=== PATIENT | male | born 1995 | race Caucasian/White ===

== ENCOUNTER 2018-11-05 12:06 | Observation (INO) | payer OTHER ==
--- NOTE | 2018-11-05 12:25 | ER Document Report ---
ED Medical Screen (RME) - General Chief Complaint: Fall Injury Stated Complaint: RIGHT FOOT INJURY Time Seen by Provider: 11/05/18 12:20 Mode of Arrival: Wheelchair Information source: Patient Notes: 23-year-old male presents emergency department after falling 16 feet onto the ground landing on his feet. Complaints of neck pain right ankle right foot pain. Past medical history of fracture to the right ankle. I have greeted and performed a rapid initial assessment of this patient. A comprehensive ED assessment and evaluation of the patient, analysis of test results and completion of the medical decision making process will be conducted by additional ED providers. Dictation of this chart was performed using voice recognition software; therefore, there may be some unintended grammatical errors. Physical Exam - Vital signs Vitals: Temp Pulse Resp BP Pulse Ox 97.3 F 63 18 110/66 99 11/05/18 12:12 11/05/18 12:12 11/05/18 12:12 11/05/18 12:12 11/05/18 12:12 Course - Vital Signs Vital signs: Temp Pulse Resp BP Pulse Ox 97.3 F 63 18 110/66 99 11/05/18 12:12 11/05/18 12:12 11/05/18 12:12 11/05/18 12:12 11/05/18 12:12
--- NOTE | 2018-11-05 13:10 | RADIOLOGY REPORT (SQ) ---
EXAM DESCRIPTION: CT CERVICAL SPINE WITHOUT COMPLETED DATE/TIME: 11/05/2018 12:58 pm REASON FOR STUDY: fall from 16 feet onto feet COMPARISON: None. TECHNIQUE: Axial images acquired through the cervical spine without intravenous contrast. Images re viewed with lung, soft tissue and bone windows. Reconstructed coronal and sagittal MPR images review ed. Images stored on PACS. All CT scanners at this facility use dose modulation, iterative reconstruction, and/or weight based d osing when appropriate to reduce radiation dose to as low as reasonably achievable (ALARA). [facility]: Dose Right [facility]: CareDose [facility]: Dose Right [facility]: Teradose 4D [facility]: Smart C$ [employer]Money RADIATION DOSE: CT Rad equipment meets quality standard of care and radiation dose reduction techniq ues were employed. CTDIvol: 13.5 mGy. DLP: 274 mGy-cm. mGy. LIMITATIONS: None. FINDINGS: ALIGNMENT: Anatomic. MINERALIZATION: Normal. VERTEBRAL BODIES: No fractures or dislocation. DISCS: No significant disc disease. FACETS, LATERAL MASSES, POSTERIOR ELEMENTS: No fractures. No dislocation. No acute findings. HARDWARE: None in the spine. VISUALIZED RIBS: No fractures. LUNG APICES AND SOFT TISSUES: No significant or acute findings. OTHER: No other significant finding. IMPRESSION: NO ACUTE OR SIGNIFICANT FINDINGS IN THE CERVICAL SPINE. TECHNICAL DOCUMENTATION: JOB ID: [id number] Quality ID # [id number]: Final reports with documentation of one or more dose reduction techniques (e.g., Au tomated exposure control, adjustment of the mA and/or kV according to patient size, use of iterative reconstruction technique) 2010 [employer]- All Rights Reserved Reading location - IP/workstation name: [email or web address]
--- NOTE | 2018-11-05 13:12 | RADIOLOGY REPORT (SQ) ---
EXAM DESCRIPTION: CT LUMBAR SPINE WITHOUT COMPLETED DATE/TIME: 11/05/2018 12:58 pm REASON FOR STUDY: fall from 16 feet onto feet COMPARISON: None. TECHNIQUE: Axial images acquired through the lumbar spine without intravenous contrast. Images revi ewed with lung, soft tissue and bone windows. Reconstructed coronal and sagittal MPR images reviewed . All images stored on PACS. All CT scanners at this facility use dose modulation, iterative reconstruction, and/or weight based d osing when appropriate to reduce radiation dose to as low as reasonably achievable (ALARA). [facility]: Dose Right [facility]: CareDose [facility]: Dose Right [facility]: Teradose 4D [facility]: [employer] RADIATION DOSE: mGy. LIMITATIONS: None. FINDINGS: SEGMENTATION: Normal. No transitional anatomy. ALIGNMENT: Normal. VERTEBRAL BODIES: No fractures. No dislocation. No acute findings. DISCS: No significant protrusions. Study limited by lack of intrathecal contrast. PEDICLES, TRANSVERSE PROCESSES: No fractures. No dislocation. No acute findings. FACETS, POSTERIOR ELEMENTS: No fractures. No dislocation. No spinal stenosis. HARDWARE: None in the spine. VISUALIZED RIBS: No fractures. SOFT TISSUES: No significant or acute finding in adjacent soft tissues. OTHER: No other significant finding. IMPRESSION: NORMAL CT OF THE LUMBAR SPINE. TECHNICAL DOCUMENTATION: JOB ID: [id number] Quality ID # [id number]: Final reports with documentation of one or more dose reduction techniques (e.g., Au tomated exposure control, adjustment of the mA and/or kV according to patient size, use of iterative reconstruction technique) 2010 [email or web address]- All Rights Reserved Reading location - IP/workstation name: [email or web address]
--- NOTE | 2018-11-05 13:14 | RADIOLOGY REPORT (SQ) ---
EXAM DESCRIPTION: ANKLE RIGHT COMPLETE COMPLETED DATE/TIME: 11/05/2018 12:55 pm REASON FOR STUDY: fall from 16 feet onto feet COMPARISON: None. NUMBER OF VIEWS: Three views. TECHNIQUE: AP, lateral, and oblique radiographic images acquired of the right ankle. LIMITATIONS: None. FINDINGS: MINERALIZATION: Normal. BONES: No acute fracture or dislocation. No worrisome bone lesions. JOINTS: No effusions. SOFT TISSUES: No soft tissue swelling. No foreign body. OTHER: No other significant finding. IMPRESSION: NEGATIVE STUDY OF THE RIGHT ANKLE. NO RADIOGRAPHIC EVIDENCE OF ACUTE INJURY IN THE ANKLE . FINDINGS IN THE FOOT (CALCANEUS) REPORTED SEPARATELY. TECHNICAL DOCUMENTATION: JOB ID: [id number] [employer]- All Rights Reserved Reading location - IP/workstation name: [email or web address]
--- NOTE | 2018-11-05 13:16 | RADIOLOGY REPORT (SQ) ---
EXAM DESCRIPTION: FOOT RIGHT COMPLETE COMPLETED DATE/TIME: 11/05/2018 12:55 pm REASON FOR STUDY: fall from 16feet onto feet COMPARISON: None. NUMBER OF VIEWS: Three views. TECHNIQUE: AP, lateral and oblique radiographic images acquired of the right foot. LIMITATIONS: None. FINDINGS: MINERALIZATION: Normal. BONES: Acute comminuted and intra-articular calcaneal fracture. There is no other fracture. The tar sometatarsal alignment is preserved. SOFT TISSUES: Swelling adjacent to the fracture. OTHER: No other finding. IMPRESSION: Acute comminuted and intra-articular calcaneal fracture. TECHNICAL DOCUMENTATION: JOB ID: [id number] [employer]- All Rights Reserved Reading location - IP/workstation name: [email or web address]
[2018-11-05] MEDS ORDERED: MORPHINE SULFATE 10 MG/ML INJ IV ONE (13:56)
[2018-11-05] MEDS ORDERED: ONDANSETRON HCL INJ/PF 4 MG/2 ML SDV IV ONE (13:56)
[2018-11-05] MEDS ORDERED: NORMAL SALINE 1000 ML 1,000 ML IV ONE (13:56)
[2018-11-05] MEDS ORDERED: CEFTRIAXONE 2 GM/D5W RTU 2 GM/50 ML RTUPB IV ONE (13:57)
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
[2018-11-05 15:08] LABS: ABSOLUTE LYMPHOCYTES (AUTO) 0.7 10^3/uL (0.5-4.7); ABSOLUTE MONOCYTES (AUTO) 0.6 10^3/uL (0.1-1.4); ABSOLUTE NEUT (AUTO) 10.9 10^3/uL (1.7-8.2); BASOPHILS % (AUTO) 0.1 % (0-2); EOSINOPHILS % (AUTO) 0.1 % (0-6); HEMATOCRIT 39.8 % (37.9-51.0); HEMOGLOBIN 13.9 g/dL (13.5-17.0); LYMPHOCYTES % (AUTO) 5.4 % (13-45); MEAN CORPUSCULAR HEMOGLOBIN 29.9 pg (27.0-33.4); MEAN CORPUSCULAR VOLUME 85 fl (80-97); MONOCYTES % (AUTO) 4.8 % (3-13); PLATELET COUNT 200 10^3/uL (150-450); RED BLOOD COUNT 4.67 10^6/uL (4.35-5.55); RED CELL DISTRIBUTION WIDTH 12.8 % (11.5-14.0); SEGMENTED NEUTROPHILS % (AUTO) 89.6 % (42-78); TOTAL CELLS COUNTED % (AUTO) 100 %; WHITE BLOOD COUNT 12.2 10^3/uL (4.0-10.5)
[2018-11-05 15:30] LABS: ALBUMIN 4.9 g/dL (3.5-5.0); ALKALINE PHOSPHATASE 60 U/L (38-126); ANION GAP 11 (5-19); ASPARTATE AMINO TRANSFERASE 34 U/L (17-59); BILIRUBIN,DIRECT 0.1 mg/dL (0.0-0.4); BILIRUBIN,TOTAL 0.7 mg/dL (0.2-1.3); BLOOD UREA NITROGEN 15 mg/dL (7-20); CALCIUM 9.9 mg/dL (8.4-10.2); CARBON DIOXIDE 27 mmol/L (22-30); CHLORIDE 100 mmol/L (98-107); GLUCOSE 85 mg/dL (75-110); POTASSIUM 3.9 mmol/L (3.6-5.0); TOTAL PROTEIN 7.6 g/dL (6.3-8.2)
[2018-11-05] MEDS: CEFTRIAXONE 2 GM/D5W RTU 2 GM/50 ML RTUPB IV SCH (17:32)
[2018-11-05] MEDS ORDERED: OXYCODONE HCL IR 5 MG TABLET PO PRN (17:55)
[2018-11-05] MEDS: MORPHINE SULFATE 10 MG/ML INJ IV PRN ×2 (18:16→20:16)
[2018-11-05 18:23] LABS: ABSOLUTE LYMPHOCYTES (AUTO) 1.4 10^3/uL (0.5-4.7); ABSOLUTE MONOCYTES (AUTO) 0.6 10^3/uL (0.1-1.4); ABSOLUTE NEUT (AUTO) 8.3 10^3/uL (1.7-8.2); BASOPHILS % (AUTO) 0.2 % (0-2); EOSINOPHILS % (AUTO) 0.1 % (0-6); HEMATOCRIT 40.4 % (37.9-51.0); HEMOGLOBIN 14.1 g/dL (13.5-17.0); LYMPHOCYTES % (AUTO) 13.2 % (13-45); MEAN CORPUSCULAR VOLUME 86 fl (80-97); MONOCYTES % (AUTO) 6.2 % (3-13); PLATELET COUNT 204 10^3/uL (150-450); RED BLOOD COUNT 4.71 10^6/uL (4.35-5.55); SEGMENTED NEUTROPHILS % (AUTO) 80.3 % (42-78); TOTAL CELLS COUNTED % (AUTO) 100 %; WHITE BLOOD COUNT 10.3 10^3/uL (4.0-10.5)
[2018-11-05 18:35] LABS: INTERNATIONAL RATION (INR) 1.18; PROTHROMBIN TIME 15.1 SEC (11.4-15.4)
[2018-11-05 18:36] LABS: PARTIAL THROMBOPLASTIN TIME 27.7 SEC (23.5-35.8)
[2018-11-05 18:42] LABS: ANION GAP 10 (5-19); BLOOD UREA NITROGEN 12 mg/dL (7-20); CALCIUM 9.4 mg/dL (8.4-10.2); CARBON DIOXIDE 28 mmol/L (22-30); CHLORIDE 102 mmol/L (98-107); GLUCOSE 133 mg/dL (75-110)
[2018-11-06] MEDS: MORPHINE SULFATE 10 MG/ML INJ IV PRN ×5 (00:10→11:39)
[2018-11-06] MEDS: RINGERS SOLUTION,LACTATED 1,000 ML IV PRN ×3 (00:14→17:19)
[2018-11-06] MEDS ORDERED: CEFAZOLIN SODIUM 2 GM in DEXTROSE 5%-WATER 100 ML IV PRN (05:00)
[2018-11-06] MEDS ORDERED: KETOROLAC TROMETHAMINE 60 MG/2 ML SDV ONE (09:15)
[2018-11-06] MEDS ORDERED: LIDOCAINE 2% INJ-PF (20 MG/ML) 2 ML AMPUL ONE (09:15)
[2018-11-06] MEDS ORDERED: SUCCINYLCHOLINE CHLORIDE INJ 200 MG/10 ML VIAL ONE (09:15)
[2018-11-06] MEDS ORDERED: ONDANSETRON HCL INJ/PF 4 MG/2 ML SDV ONE (09:15)
[2018-11-06] MEDS ORDERED: DEXAMETHASONE SOD PHOSPHATE INJ 4 MG/1 ML VIAL ONE (09:15)
--- NOTE | 2018-11-06 11:45 | PDOC H&P ---
History of Present Illness Admission Date/PCP: 11/05/18 15:01 History of Present Illness: JARRED LOWRY is a 23 year old male Patient is a 23-year-old white male who fell 16 feet onto outstretched lower extremity sustaining a right foot injury. He is evaluated in the emergency room where an grade 1 open right calcaneal fracture is diagnosed. Patient is bandaged and admitted to orthopedic service for fracture management. Past Medical History Medical History: None Past Surgical History Past Surgical History: Reports: None Social History Information Source: Patient, [facility] Records Lives with: Family Smoking Status: Unknown if Ever Smoked Frequency of Alcohol Use: Occasional Hx Recreational Drug Use: No Hx Prescription Drug Abuse: No Family History Family History: Reviewed & Not Pertinent Parental Family History Reviewed: No Children Family History Reviewed: No Sibling(s) Family History Reviewed.: No Medication/Allergy Home Medications: No Home Medications 11/05/18 Allergies/Adverse Reactions: No Known Allergies Allergy (Verified 11/05/18 14:21) Review of Systems All systems: as per [facility] Physical Exam Vital Signs: Temp Pulse Resp BP Pulse Ox 36.6 C 61 12 120/72 98 11/06/18 07:47 11/06/18 07:47 11/06/18 07:47 11/06/18 07:47 11/06/18 07:47 Intake & Output 11/05/18 11/06/18 11/07/18 06:59 06:59 06:59 Intake Total 2100 Balance 2100 Weight 67.3 kg Physical Exam: Patient is a tall thin white male lying on emergency room [facility]. The patient is alert, oriented,, and appropriate. The patient is minor distress. General appearance: PRESENT: no acute distress, mild distress Head exam: PRESENT: normocephalic Respiratory exam: PRESENT: unlabored Cardiovascular exam: PRESENT: RRR Pulses: PRESENT: +1 pedal pulses bilateral Vascular exam: PRESENT: normal capillary refill GI/Abdominal exam: PRESENT: soft Rectal exam: PRESENT: deferred Extremities exam: PRESENT: other - Foot is wrapped in Kerlix. Toes are exposed. There is brisk capillary refill. There is active flexion extension of the great toe. Sensory examination is intact to light touch. There is bleeding to the plantar surface of the foot. On the plantar surface the foot is a small punctate wound presumably from an in to out mechanism. Psychiatric exam: PRESENT: appropriate affect, normal mood. ABSENT: homicidal ideation, suicidal ideation Skin exam: PRESENT: dry, intact, warm. ABSENT: cyanosis, rash Results Laboratory Results: 11/05/18 18:09 11/05/18 18:09 11/05/18 11/05/18 11/05/18 14:38 14:38 18:09 WBC 12.2 H 10.3 RBC 4.67 4.71 Hgb 13.9 14.1 Hct 39.8 40.4 MCV 85 86 MCH 29.9 30.0 MCHC 35.0 35.0 RDW 12.8 13.0 Plt Count 200 204 Seg Neutrophils % 89.6 H 80.3 H Sodium 137.8 Potassium 3.9 Chloride 100 Carbon Dioxide 27 Anion Gap 11 BUN 15 Creatinine 0.95 Est GFR ( Amer) > 60 Glucose 85 Calcium 9.9 Total Bilirubin 0.7 AST 34 Alkaline Phosphatase 60 Total Protein 7.6 Albumin 4.9 11/05/18 18:09 WBC RBC Hgb Hct MCV MCH MCHC RDW Plt Count Seg Neutrophils % Sodium 140.2 Potassium 4.0 Chloride 102 Carbon Dioxide 28 Anion Gap 10 BUN 12 Creatinine 0.87 Est GFR ( Amer) > 60 Glucose 133 H Calcium 9.4 Total Bilirubin AST Alkaline Phosphatase Total Protein Albumin Impressions: Ankle X-Ray 11/05/18 12:22 IMPRESSION: NEGATIVE STUDY OF THE RIGHT ANKLE. NO RADIOGRAPHIC EVIDENCE OF ACUTE INJURY IN THE ANKLE. FINDINGS IN THE FOOT (CALCANEUS) REPORTED SEPARATELY. Cervical Spine CT 11/05/18 12:22 IMPRESSION: NO ACUTE OR SIGNIFICANT FINDINGS IN THE CERVICAL SPINE. Foot X-Ray 11/05/18 12:22 IMPRESSION: Acute comminuted and intra-articular calcaneal fracture. Lumbar Spine CT 11/05/18 12:22 IMPRESSION: NORMAL CT OF THE LUMBAR SPINE. Status: Imported from PACS Assessment & Plan - Diagnosis (1) Fracture, calcaneus, open Qualifiers: Encounter type: initial encounter Calcaneus location: unspecified portion of calcaneus Fracture alignment: displaced Laterality: right Qualified Code(s): S92.001B - Unspecified fracture of right calcaneus, initial encounter for open fracture Is this a current diagnosis for this admission?: Yes Plan: Placement patient is started on intravenous antibiotics and will be taken to the operating room for irrigation debridement and an ORIF of the calcaneus fracture. - Time Time Spent: 50 to 70 Minutes Anticipated discharge: Home with Homehealth Within: within 24 hours
[2018-11-06] MEDS ORDERED: FENTANYL CITRATE INJ/PF 250 MCG/5 ML AMPULE ONE (12:28)
[2018-11-06] MEDS ORDERED: HYDROMORPHONE HCL INJ/PF 2 MG/ML AMPULE ONE (12:28)
[2018-11-06] MEDS ORDERED: PROPOFOL INJ 200 MG/20 ML VIAL IV ONE (12:28)
[2018-11-06] MEDS ORDERED: MIDAZOLAM 2 MG/2 ML INJ ONE (12:28)
[2018-11-06] MEDS ORDERED: BUPIVACAINE HCL 0.5%-EPI 1:200000 INJ/PF 30 ML VIAL ONE (12:52)
[2018-11-06] MEDS ORDERED: MEPERIDINE HCL/PF INJ 25 MG/1 ML DISP.SYRIN IV PRN ×2 (13:55→15:14)
[2018-11-06] MEDS ORDERED: OXYCODONE-ACETAMINOPHEN 5-325 MG TABLET PO PRN ×4 (13:55→15:14)
[2018-11-06] MEDS ORDERED: FENTANYL CITRATE INJ/PF 100 MCG/2 ML AMPUL IV PRN ×6 (13:55→15:14)
[2018-11-06] MEDS ORDERED: MORPHINE SULFATE 10 MG/ML INJ IV PRN ×2 (13:55→15:14)
[2018-11-06] MEDS ORDERED: DIPHENHYDRAMINE HCL 50 MG/ML VIAL IV PRN ×2 (13:55→15:14)
[2018-11-06] MEDS ORDERED: PROMETHAZINE HCL INJ 25 MG/1 ML VIAL IV PRN ×2 (13:55→15:14)
--- NOTE | 2018-11-06 14:20 | Operative Report ---
Operative Report DATE OF SURGERY: 11/06/18 PREOPERATIVE DIAGNOSIS: Grade 1 open right calcaneal fracture OPERATION: Debridement open right calcaneal fracture including skin, subcutaneous tissue, fascia, and bone. ORIF of right calcaneal fracture SURGEON: GALILEA WILSON ANESTHESIA: GA ESTIMATED BLOOD LOSS: When he 5 PROCEDURE: With the patient is sloppy left lateral decubitus position on the operative table the right lower extremities prepped and draped in sterile fashion. The extremity is elevated for exsanguination tourniquet inflated 280 torr. A curvilinear incision was made along the posterior and inferior aspects of the lateral right calcaneus and sharp dissection was carried incision down to the underlying bone. Soft tissue including the periosteum is elevated as a single layer. The fracture is exposed and the soft tissue held retracted by K wires. Next a stab wound was placed through the plantar surface of the calcaneus and a Steinmann pin is placed up into the posterior aspect of the calcaneus. This is used for distraction to help reduce the fracture. With further manipulation including manual reduction the fracture is reduced satisfactorily using fluoroscopic guidance. Subsequently a [place] titanium calcaneal plate is applied to the lateral surface of the calcaneus and secured with screws to maintain the reduction. The wound is then irrigated with bulb lavage. The tourniquet is deflated. Hemostasis obtained with electrocautery. The wound was closed in layers with interrupted Vicryl followed by skin nylon. A sterile compressive dressing and posterior plaster splint were applied and the patient's return to the PACU in satisfactory condition.
[2018-11-06] MEDS ORDERED: TRANEXAMIC ACID INJ/PF 1,000 MG/10 ML SDV ONE (14:34)
--- NOTE | 2018-11-06 14:57 | RADIOLOGY REPORT (SQ) ---
EXAM DESCRIPTION: NO CHG FLUORO; OS CALCIS/HEEL RIGHT COMPLETED DATE/TIME: 11/06/2018 2:45 pm REASON FOR STUDY: ORIF RIGHT CALCANEOUS ASST WITH FLUORO IN OR COMPARISON: None. FLUOROSCOPY TIME: 0.3 minutes 2 Images saved to PACS TECHNIQUE: Intra-operative images acquired during surgical procedure to evaluate progress. NUMBER OF IMAGES: 2 LIMITATIONS: None. FINDINGS: Intraoperative fluoroscopic images obtained to evaluate progress. Please see operative re port for detailed description. IMPRESSION: IMAGE(S) OBTAINED DURING PROCEDURE. COMMENT: Quality ID [id number]: Final reports for procedures using fluoroscopy that document radiation exp osure indices, or exposure time and number of fluorographic images (if radiation exposure indices are not available) Please consult full operative report of the attending physician for description of the procedure. TECHNICAL DOCUMENTATION: JOB ID: [id number] [employer]- All Rights Reserved Reading location - IP/workstation name: [email or web address]
--- NOTE | 2018-11-06 14:57 | RADIOLOGY REPORT (SQ) ---
EXAM DESCRIPTION: NO CHG FLUORO; OS CALCIS/HEEL RIGHT COMPLETED DATE/TIME: 11/06/2018 2:45 pm REASON FOR STUDY: ORIF RIGHT CALCANEOUS ASST WITH FLUORO IN OR COMPARISON: None. FLUOROSCOPY TIME: 0.3 minutes 2 Images saved to PACS TECHNIQUE: Intra-operative images acquired during surgical procedure to evaluate progress. NUMBER OF IMAGES: 2 LIMITATIONS: None. FINDINGS: Intraoperative fluoroscopic images obtained to evaluate progress. Please see operative re port for detailed description. IMPRESSION: IMAGE(S) OBTAINED DURING PROCEDURE. COMMENT: Quality ID [id number]: Final reports for procedures using fluoroscopy that document radiation exp osure indices, or exposure time and number of fluorographic images (if radiation exposure indices are not available) Please consult full operative report of the attending physician for description of the procedure. TECHNICAL DOCUMENTATION: JOB ID: [id number] [employer]- All Rights Reserved Reading location - IP/workstation name: [email or web address]
[2018-11-06] MEDS: CEFTRIAXONE 2 GM/D5W RTU 2 GM/50 ML RTUPB IV SCH (17:18)
[2018-11-07 07:05] LABS: ABSOLUTE LYMPHOCYTES (AUTO) 1.2 10^3/uL (0.5-4.7); ABSOLUTE MONOCYTES (AUTO) 1.1 10^3/uL (0.1-1.4); ABSOLUTE NEUT (AUTO) 8.5 10^3/uL (1.7-8.2); BASOPHILS % (AUTO) 0.1 % (0-2); EOSINOPHILS % (AUTO) 0.1 % (0-6); HEMATOCRIT 37.4 % (37.9-51.0); HEMOGLOBIN 13.1 g/dL (13.5-17.0); LYMPHOCYTES % (AUTO) 11.2 % (13-45); MEAN CORPUSCULAR HEMOGLOBIN 30.2 pg (27.0-33.4); MEAN CORPUSCULAR VOLUME 86 fl (80-97); MONOCYTES % (AUTO) 9.8 % (3-13); PLATELET COUNT 178 10^3/uL (150-450); RED BLOOD COUNT 4.34 10^6/uL (4.35-5.55); RED CELL DISTRIBUTION WIDTH 12.9 % (11.5-14.0); SEGMENTED NEUTROPHILS % (AUTO) 78.8 % (42-78); TOTAL CELLS COUNTED % (AUTO) 100 %; WHITE BLOOD COUNT 10.8 10^3/uL (4.0-10.5)
--- NOTE | 2018-11-07 07:23 | PDOC DISCHARGE SUMMARY ---
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 He tolerates the procedure without complications returned to floor in satisfactory condition. Physical Exam Vital Signs: Temp Pulse Resp BP Pulse Ox 36.9 C 79 15 113/55 L 99 11/06/18 21:30 11/06/18 22:57 11/06/18 22:57 11/06/18 22:57 11/06/18 22:57 Intake & Output 11/06/18 11/07/18 11/08/18 06:59 06:59 06:59 Intake Total 2100 3287 Output Total 600 Balance 2100 2687 Weight 67.3 kg 52.6 kg General appearance: PRESENT: no acute distress Head exam: PRESENT: normocephalic Respiratory exam: PRESENT: unlabored Cardiovascular exam: PRESENT: RRR Vascular exam: PRESENT: normal capillary refill GI/Abdominal exam: PRESENT: soft Rectal exam: PRESENT: deferred Neurological exam: PRESENT: alert, awake, oriented to person, oriented to place, oriented to time, oriented to situation. ABSENT: motor sensory deficit Psychiatric exam: PRESENT: appropriate affect, normal mood. ABSENT: homicidal ideation, suicidal ideation Skin exam: PRESENT: dry, intact, warm. ABSENT: cyanosis, rash Results Laboratory Results: WBC 10.8 10^3/uL (4.0-10.5) H 11/07/18 06:20 RBC 4.34 10^6/uL (4.35-5.55) L 11/07/18 06:20 Hgb 13.1 g/dL (13.5-17.0) L 11/07/18 06:20 Hct 37.4 % (37.9-51.0) L 11/07/18 06:20 MCV 86 fl (80-97) 11/07/18 06:20 MCH 30.2 pg (27.0-33.4) 11/07/18 06:20 MCHC 35.0 g/dL (32.0-36.0) 11/07/18 06:20 RDW 12.9 % (11.5-14.0) 11/07/18 06:20 Plt Count 178 10^3/uL (150-450) 11/07/18 06:20 Lymph % (Auto) 11.2 % (13-45) L 11/07/18 06:20 [place] % (Auto) 9.8 % (3-13) 11/07/18 06:20 Eos % (Auto) 0.1 % (0-6) 11/07/18 06:20 Baso % (Auto) 0.1 % (0-2) 11/07/18 06:20 Absolute Neuts (auto) 8.5 10^3/uL (1.7-8.2) H 11/07/18 06:20 Absolute Lymphs (auto) 1.2 10^3/uL (0.5-4.7) 11/07/18 06:20 Absolute Monos (auto) 1.1 10^3/uL (0.1-1.4) 11/07/18 06:20 Absolute Eos (auto) 0.0 10^3/uL (0.0-0.6) 11/07/18 06:20 Absolute Basos (auto) 0.0 10^3/uL (0.0-0.2) 11/07/18 06:20 Seg Neutrophils % 78.8 % (42-78) H 11/07/18 06:20 PT 15.1 SEC (11.4-15.4) 11/05/18 18:09 INR 1.18 11/05/18 18:09 APTT 27.7 SEC (23.5-35.8) 11/05/18 18:09 Sodium 140.2 mmol/L (137-145) 11/05/18 18:09 Potassium 4.0 mmol/L (3.6-5.0) 11/05/18 18:09 Chloride 102 mmol/L (98-107) 11/05/18 18:09 Carbon Dioxide 28 mmol/L (22-30) 11/05/18 18:09 Anion Gap 10 (5-19) 11/05/18 18:09 BUN 12 mg/dL (7-20) 11/05/18 18:09 Creatinine 0.87 mg/dL (0.52-1.25) 11/05/18 18:09 Est GFR ( Amer) > 60 (>60) 11/05/18 18:09 Est GFR (MDRD) Non-Af > 60 (>60) 11/05/18 18:09 Glucose 133 mg/dL (75-110) H 11/05/18 18:09 Calcium 9.4 mg/dL (8.4-10.2) 11/05/18 18:09 Total Bilirubin 0.7 mg/dL (0.2-1.3) 11/05/18 14:38 Direct Bilirubin 0.1 mg/dL (0.0-0.4) 11/05/18 14:38 Neonat Total Bilirubin Not Reportable 11/05/18 14:38 Neonat Direct Bilirubin Not Reportable 11/05/18 14:38 Neonat Indirect Bili Not Reportable 11/05/18 14:38 AST 34 U/L (17-59) 11/05/18 14:38 ALT 15 U/L (<50) 11/05/18 14:38 Alkaline Phosphatase 60 U/L (38-126) 11/05/18 14:38 Total Protein 7.6 g/dL (6.3-8.2) 11/05/18 14:38 Albumin 4.9 g/dL (3.5-5.0) 11/05/18 14:38 Impressions: Ankle X-Ray 11/05/18 12:22 IMPRESSION: NEGATIVE STUDY OF THE RIGHT ANKLE. NO RADIOGRAPHIC EVIDENCE OF ACUTE INJURY IN THE ANKLE. FINDINGS IN THE FOOT (CALCANEUS) REPORTED SEPARATELY. Cervical Spine CT 11/05/18 12:22 IMPRESSION: NO ACUTE OR SIGNIFICANT FINDINGS IN THE CERVICAL SPINE. Foot X-Ray 11/05/18 12:22 IMPRESSION: Acute comminuted and intra-articular calcaneal fracture. Lumbar Spine CT 11/05/18 12:22 IMPRESSION: NORMAL CT OF THE LUMBAR SPINE. Fluoroscopy 11/06/18 00:00 IMPRESSION: IMAGE(S) OBTAINED DURING PROCEDURE. Os Calcis X-ray 11/06/18 00:00 IMPRESSION: IMAGE(S) OBTAINED DURING PROCEDURE. Plan Plan of Treatment: Patient to maintain touchdown weightbearing restriction on the right lower extremity. Will be traveling back to [place] following discharge. He will seek an orthopedic surgeon near [facility] for transition of care for assumption of care. All necessary records will be forwarded to the patient. Stroke Is this a Stroke Patient?: No Stroke Pt being discharged on Anti-thrombolytic therapy?: No Reason(s) for not prescribing Anti-thrombolytic therapy:: Not indicated Acute Heart Failure - Is this a Heart Failure Patient?: No
[2018-11-07 07:28] LABS: ANION GAP 10 (5-19); BLOOD UREA NITROGEN 10 mg/dL (7-20); CALCIUM 9.5 mg/dL (8.4-10.2); CARBON DIOXIDE 28 mmol/L (22-30); CHLORIDE 102 mmol/L (98-107); GLUCOSE 98 mg/dL (75-110); POTASSIUM 3.9 mmol/L (3.6-5.0)
[2018-11-07 09:39] VITALS: BP 120/72
== END 2018-11-07 09:59 | disposition home or self-care (01) ==
LOC: OROUT 12:06 → INTOOBSV 15:01 → EH 15:01 → 5 16:41
PROVIDERS: ADMIT Orthopaedic Surgery; ATTEND Orthopaedic Surgery
PROC: 0QSL04Z Reposition Right Tarsal with Internal Fixation Device, Open Approach (ICD-10-PCS; principal; 2018-11-06 12:30)
DX: S92.061B Displaced intraarticular fracture of right calcaneus, initial encounter for open fracture (principal); W17.89XA Other fall from one level to another, initial encounter; Y92.69 Other specified industrial and construction area as the place of occurrence of the external cause; Y99.0 Civilian activity done for income or pay; M54.2 Cervicalgia; M54.5 Low back pain; Z72.0 Tobacco use
CPT/HCPCS: 99285; 96375; 96365; 36415 ×2; 85025 ×2; 85610; 85730; 80048; 80053; 73610; 73630; 73650; 72125; 72131; 97116; 97161; 01480; 28415; G0378 ×3; L0120; C1781; C1713 ×5; J2250; J3490 ×3; J0690; J1100; J1885; J3010; J2270 ×2; J0330; J2405 ×2; J7060; J7120; J2704; J0696 ×2; J1170